=== PATIENT | female | born 1940 | race Native Hawaiian/Other Pacific Islander ===

== ENCOUNTER 2016-09-25 14:12 | Outpatient (CLI) | payer OTHER ==
[~2016-09-25 14:12] MED LIST: ALPR0.2566 PO; BENICAR40 MG PO; BONIVA150 MG PO; DIGO0.2549 PO; DIGOXIN0.25 MG PO; GLIP2.5T3 PO; GLIP5TAB76 PO; LEVO0.0218 PO; METF500T PO; MOBIC15 MG OR; PAXIL10 MG PO; TEMA15CA19 PO; TOBRSUS OPTH; TRAZ50TA36; VALS160T PO; Z-PAK PO
== END 2016-09-25 19:21 | disposition home or self-care (01) ==
LOC: RAD 14:12
DX: M54.5 Low back pain (principal); M47.896 Other spondylosis, lumbar region

== ENCOUNTER 2016-12-04 14:29 | Outpatient (CLI) | payer OTHER | END 2016-12-04 19:11 | disposition home or self-care (01) | LOC: US 14:29 | DX: M79.89 Other specified soft tissue disorders (principal) ==

== ENCOUNTER 2016-12-17 09:48 | Outpatient (CLI) | payer OTHER ==
[2016-12-17 10:06] LABS: PLATELET COUNT 89 K/uL (152-353)
== END 2016-12-17 10:50 | disposition home or self-care (01) ==
LOC: LABW 09:48
PROVIDERS: Internal Medicine
DX: M79.89 Other specified soft tissue disorders (principal)
CPT/HCPCS: 36415; 85027

== ENCOUNTER 2017-01-16 18:19 | Emergency (ER) | payer OTHER ==
[~2017-01-16] VITALS: Ht 170.2 cm; Wt 63.5 kg
[2017-01-16 18:47] VITALS: BP 207/85; TEMP 98.6
== END 2017-01-16 21:24 | disposition home or self-care (01) ==
LOC: ED 18:19
DX: S50.12XA Contusion of left forearm, initial encounter (principal); S52.592A Other fractures of lower end of left radius, initial encounter for closed fracture; W18.39XA Other fall on same level, initial encounter; X50.9XXA Other and unspecified overexertion or strenuous movements or postures, initial encounter; Y92.89 Other specified places as the place of occurrence of the external cause
CPT/HCPCS: 81000; 90715; 99283

== ENCOUNTER → 2017-01-21 16:00 | Outpatient (CLI) | payer OTHER | END | disposition home or self-care (01) | LOC: AMB 16:00 | DX: R52 Pain, unspecified (principal) ==

== ENCOUNTER 2017-01-25 12:32 | Outpatient (CLI) | payer OTHER | END 2017-01-25 20:07 | disposition home or self-care (01) | LOC: RAD 12:32 | DX: J40 Bronchitis, not specified as acute or chronic (principal) ==

== ENCOUNTER 2017-02-20 15:52 | Outpatient (CLI) | payer OTHER | END 2017-02-20 16:55 | disposition home or self-care (01) | LOC: RAD 15:52 | DX: M81.8 Other osteoporosis without current pathological fracture (principal); M85.88 Other specified disorders of bone density and structure, other site ==

== ENCOUNTER 2017-04-02 07:18 | Outpatient (CLI) | payer OTHER ==
[~2017-04-02] VITALS: Ht 167.6 cm; Wt 62.1 kg
[2017-04-02 09:11] LABS: PLATELET COUNT 59 K/uL (152-353)
[2017-04-02 09:20] VITALS: BP 164/62; TEMP 97.7
[2017-04-02 10:01] LABS: POTASSIUM 3.4 mmol/L (3.6-5.2); SODIUM 136 mmol/L (136-145)
[2017-04-02 11:20] VITALS: BP 155/62; TEMP 97.7
== END 2017-04-02 11:20 | disposition home or self-care (01) ==
LOC: LABW 07:18 → INF 07:18
PROVIDERS: Internal Medicine
DX: E11.9 Type 2 diabetes mellitus without complications (principal); E55.9 Vitamin D deficiency, unspecified; M81.0 Age-related osteoporosis without current pathological fracture
CPT/HCPCS: 80053; 80061; 81000; 82043; 82306; 82570; 83036; 84439; 84443; 85027; 96372; J0897

== ENCOUNTER 2017-04-26 10:01 | Outpatient (CLI) | payer OTHER | END 2017-04-26 18:59 | disposition home or self-care (01) | LOC: CT 10:01 | DX: Z12.31 Encounter for screening mammogram for malignant neoplasm of breast (principal); R16.1 Splenomegaly, not elsewhere classified; R10.84 Generalized abdominal pain | CPT/HCPCS: Q9963 ==

== ENCOUNTER 2017-10-27 05:39 | Emergency (ER) | payer OTHER ==
[~2017-10-27] VITALS: Ht 170.2 cm; Wt 59.4 kg
[2017-10-27 05:45] VITALS: TEMP 98.1
[2017-10-27 06:25] LABS: PLATELET COUNT 84 K/uL (152-353)
[2017-10-27 06:41] LABS: POTASSIUM 3.9 mmol/L (3.6-5.2)
[2017-10-27 07:48] VITALS: BP 157/59
== END 2017-10-27 07:48 | disposition home or self-care (01) ==
LOC: ED 05:39
DX: R18.8 Other ascites (principal); K74.69 Other cirrhosis of liver
CPT/HCPCS: 36415; 80053; 81000; 85027; 99283

== ENCOUNTER 2018-04-13 09:03 | Outpatient (CLI) | payer OTHER ==
[2018-04-13 09:33] LABS: PLATELET COUNT 58 K/uL (152-353)
[2018-04-13 10:01] LABS: POTASSIUM 3.8 mmol/L (3.6-5.2)
== END 2018-04-13 19:38 | disposition home or self-care (01) ==
LOC: LABW 09:03
PROVIDERS: Internal Medicine
DX: E11.9 Type 2 diabetes mellitus without complications (principal); E03.9 Hypothyroidism, unspecified; R82.998 Other abnormal findings in urine
CPT/HCPCS: 80053; 80061; 81000; 82043; 82570; 83036; 84439; 84443; 85027; 87077; 87086; 87088; 87186

== ENCOUNTER 2018-05-06 10:17 | Outpatient (CLI) | payer OTHER | END 2018-05-06 22:24 | disposition home or self-care (01) | LOC: MAMMO 10:17 | DX: Z12.31 Encounter for screening mammogram for malignant neoplasm of breast (principal) ==

== ENCOUNTER 2018-11-10 09:29 | Outpatient (CLI) | payer OTHER ==
[2018-11-10 09:53] LABS: PLATELET COUNT 47 K/uL (152-353)
[2018-11-10 10:16] LABS: POTASSIUM 4.6 mmol/L (3.6-5.2)
== END 2018-11-10 22:21 | disposition home or self-care (01) ==
LOC: LABW 09:29
PROVIDERS: Internal Medicine
DX: E11.9 Type 2 diabetes mellitus without complications (principal)
CPT/HCPCS: 36415; 80053; 80061; 81000; 82043; 82570; 83036; 84439; 84443; 85027

== ENCOUNTER 2019-01-25 08:04 | Outpatient (CLI) | payer OTHER ==
[2019-01-25 08:22] LABS: PLATELET COUNT 66 K/uL (152-353)
[2019-01-25 08:59] LABS: POTASSIUM 5.4 mmol/L (3.6-5.2)
== END 2019-01-25 23:59 ==
LOC: LABW 08:04
PROVIDERS: Physician Assistant
DX: E88.09 Other disorders of plasma-protein metabolism, not elsewhere classified (principal); E03.8 Other specified hypothyroidism; D72.1 Eosinophilia
CPT/HCPCS: 80053; 84439; 84443; 85027

== ENCOUNTER 2019-05-28 11:49 | Outpatient (CLI) | payer OTHER | END 2019-05-28 20:18 | disposition home or self-care (01) | LOC: RAD 11:49 | DX: M54.89 Other dorsalgia (principal) ==

== ENCOUNTER 2019-07-02 07:08 | Observation (INO) | payer OTHER ==
[~2019-07-02] VITALS: Ht 170.2 cm; Wt 57.0 kg
[2019-07-02] VITALS (9 sets, daily range): BP systolic 98–181; BP diastolic 56–89; TEMP 97.8–98.6; Ht 170.2 cm; Wt 57.0 kg
[2019-07-02 08:00] LABS: PLATELET COUNT 64 K/uL (152-353)
[2019-07-02 08:05] LABS: POTASSIUM 3.9 mmol/L (3.6-5.2)
[2019-07-02] MEDS ORDERED: LABETALOL100 MG PO (19:20)
[2019-07-02] MEDS ORDERED: LABETALOL200 MG PO (19:20)
[2019-07-02] MEDS ORDERED: OMEPRAZOLE DR20 MG PO (19:21)
[2019-07-02] MEDS ORDERED: LEVO-T25 MCG PO (19:22)
[2019-07-02] MEDS ORDERED: IMURAN50 MG PO (19:23)
[2019-07-03] VITALS: BP 142/50; TEMP 98.3
[2019-07-03 04:00] VITALS: BP 139/48; TEMP 98
[2019-07-03 05:09] LABS: PLATELET COUNT 64 K/uL (152-353)
[2019-07-03 08:00] VITALS: BP 139/53; TEMP 97.8
[2019-07-03 12:00] VITALS: BP 125/51; TEMP 97.7
== END 2019-07-03 17:25 | disposition home or self-care (01) ==
LOC: ED 07:15 → MED/SURG 08:30
PROVIDERS: Internal Medicine; ADMIT Emergency Medicine
DX: E86.0 Dehydration (principal); E87.1 Hypo-osmolality and hyponatremia; K75.4 Autoimmune hepatitis; K74.69 Other cirrhosis of liver; I48.91 Unspecified atrial fibrillation; G47.33 Obstructive sleep apnea (adult) (pediatric); K75.81 Nonalcoholic steatohepatitis (NASH); E11.9 Type 2 diabetes mellitus without complications; D61.818 Other pancytopenia; D73.1 Hypersplenism; R18.8 Other ascites; F41.1 Generalized anxiety disorder; R41.0 Disorientation, unspecified
CPT/HCPCS: 36415; 80053; 80162; 81000; 82140; 82150; 82948; 83690; 84550; 85027; 93005; 96360; 96365; 96366; 99220; 99284; G0378; Q9963

== ENCOUNTER 2019-07-12 10:20 | Outpatient (CLI) | payer OTHER ==
[~2019-07-12 10:20] MED LIST changes: +IMURAN50 MG PO; +LABETALOL100 MG PO; +LABETALOL200 MG PO; +LEVO-T25 MCG PO; +OMEPRAZOLE DR20 MG PO
== END 2019-07-12 19:09 | disposition home or self-care (01) ==
LOC: LABW 10:20
DX: K59.1 Functional diarrhea (principal)
CPT/HCPCS: 82705; 83630; 87015; 87045; 87324; 87328; 87329; 87449; 87899

== ENCOUNTER 2019-11-02 09:10 | Outpatient (CLI) | payer OTHER | END 2019-11-02 19:40 | disposition home or self-care (01) | LOC: CT 09:10 | DX: N83.292 Other ovarian cyst, left side (principal) | CPT/HCPCS: 36415; 82565; 84520; Q9963 ==

== ENCOUNTER 2020-02-19 16:06 | Outpatient (CLI) | payer OTHER ==
[2020-02-19 16:43] LABS: PLATELET COUNT 65 K/uL (152-353)
[2020-02-19 17:11] LABS: POTASSIUM 4.7 mmol/L (3.6-5.2)
== END 2020-02-19 23:17 | disposition home or self-care (01) ==
LOC: CT 16:06
PROVIDERS: Obstetrics & Gynecology Gynecologic Oncology
DX: N83.292 Other ovarian cyst, left side (principal); I10 Essential (primary) hypertension
CPT/HCPCS: 36415; 80053; 80061; 82565; 84439; 84443; 84550; 85027; Q9963

== ENCOUNTER 2020-05-25 11:02 | Outpatient (CLI) | payer OTHER ==
[2020-05-25 12:34] LABS: PLATELET COUNT 60 K/uL (152-353)
[2020-05-25 12:42] LABS: POTASSIUM 5.3 mmol/L (3.6-5.2)
== END 2020-05-25 21:07 | disposition home or self-care (01) ==
LOC: LABW 11:02 → CT 11:02
PROVIDERS: ATTEND Internal Medicine Gastroenterology
DX: R14.0 Abdominal distension (gaseous) (principal); K74.69 Other cirrhosis of liver
CPT/HCPCS: 36415; 80053; 82140; 82565; 84520; 85027; Q9963

== ENCOUNTER 2020-06-14 15:01 | Outpatient (CLI) | payer OTHER | END 2020-06-14 23:02 | disposition home or self-care (01) | LOC: LAB 15:01 | PROVIDERS: ATTEND Internal Medicine Gastroenterology | DX: K59.1 Functional diarrhea (principal) | CPT/HCPCS: 87015; 87045; 87324; 87449; 87899 ==

== ENCOUNTER → 2020-12-04 | Outpatient (CLI) | payer OTHER ==
[2020-12-20 15:36] LABS: POTASSIUM 4.5 mmol/L (3.6-5.2)
[2020-12-20 15:39] LABS: PLATELET COUNT 54 K/uL (152-353)
== END ==
LOC: LABW 11:00
PROVIDERS: ATTEND Internal Medicine
DX: K74.69 Other cirrhosis of liver (principal); E11.9 Type 2 diabetes mellitus without complications; E03.8 Other specified hypothyroidism
CPT/HCPCS: 80053; 80061; 81000; 82043; 82140; 83036; 84439; 84443; 85027; 85610

== ENCOUNTER 2021-01-10 09:41 | Outpatient (CLI) | payer OTHER | END 2021-01-10 20:35 | disposition home or self-care (01) | LOC: CT 09:41 | PROVIDERS: ATTEND Internal Medicine | DX: K11.20 Sialoadenitis, unspecified (principal) ==